=== PATIENT | male | born 1960 | race Caucasian/White ===

== ENCOUNTER 2018-07-04 07:24 | Inpatient (IN) ==
--- NOTE | 2018-06-12 07:48 | History & Physical Report ---
Date of Service June 12, 2018 Date of Surgery: 07-04-18 Assessment & Plan (1) Bilateral primary osteoarthritis of knee: Risks and benefits of procedure discussed in detail today, patient would like to proceed with bilateral total knee replacement at [facility] as scheduled. will obtain PATs at [facility]. Will place on Xarelto x 1 month post op, f/u 2 weeks post op for routine post-operative care and x-ray, sooner if having any problems. will make arrangements for HHPT at the time of discharge. At this point in time, has failed conservative measures and would like to proceed with surgical intervention. History of Present Illness Chief Complaint: bilateral knee pain Primary Care Provider: NO PCP Mr Burton is a 57 year old male who complains of bilateral knee pain, presents for pre-op evaluation prior to bilateral total knee replacements on 07-04-18 at [facility]. He presents with pain on the right and left side equally. He states that the symptoms have been chronic non-traumatic and occur intermittently. Currently the patient states that the symptoms are moderate-severe. The pain is described as aching and sometime sharp. The patient is experiencing pain diffusely in both knees, He rates his current pain as 5/10 and worst is 7/10. The symptoms are aggravated by ascending stairs, daily activities and walking/standing for long periods of time. He states that the symptoms are relieved by no specific activity. In addition to knee pain equally on both sides the patient is also experiencing difficulty bending, pain after activity and stiffness. Patient had cortisone injections in both knees by PCP on 04/11/18 with no relief. He has tried PO NSAIDs as well as Tylenol with little relief. Allergies Allergy/AdvReac Type Severity Reaction Status Date / Time No Known Allergies Allergy Verified 06/02/18 07:55 Home Medications Home Medications Medication Instructions Recorded Confirmed Type Betaprostate 1 tab PO QAM 06/02/18 History Hemp Oil 1 dose PO HS PRN 06/02/18 History atorvastatin 40 mg PO HS 06/02/18 06/02/18 History qrailpw-uomrnbyjlz-QMV-caff 1 cap PO Q6H PRN 06/02/18 06/02/18 History [Butalbital Compound W/Codeine] dexlansoprazole [Dexilant] 60 mg PO QAM 06/02/18 06/02/18 History diphenhydramine HCl [Benadryl] 25 mg PO Q6H PRN 06/02/18 06/02/18 History metoprolol tartrate 25 mg PO BID 06/02/18 06/02/18 History multivitamin 1 tab PO QAM 06/02/18 06/02/18 History nitroglycerin 1 tab SUBLINGUAL DIRECTED 06/02/18 06/02/18 History dajidyfljfdnw-lsgukdpyjwcny-FC 1 tab PO Q6H PRN 06/02/18 06/02/18 History [Tylenol Sinus Severe] ranolazine [Ranexa] 1,000 mg PO BID 06/02/18 06/02/18 History tamsulosin 0.4 mg PO BID 06/02/18 06/02/18 History Past Med/Surg History Medical History BPH (benign prostatic hyperplasia) DJD (degenerative joint disease) of knee History of bleeding ulcers Hx of myocardial infarction Migraine Osteoarthritis Personal history of kidney stones Surgical History History of cardiac cath 1 vessel blocked - no stents; History of colonoscopy History of endoscopic sinus surgery History of esophagogastroduodenoscopy (EGD) History of prostate surgery Describes as "roto rooter" Family History Mother FHx: cancer Social History Preferred Language: Austrian Communication Ability: Effective Beliefs That Will Affect Care: Yazidism Yazidism 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 Current Living Situation: Spouse Other Information That Helps Us Care for You: No Feels Safe at Home: Yes Safety Concerns: Feels Safe At This Time Smoking Status: Never smoker Do You Dip or Chew Tobacco: No Hx Alcohol Use: No Hx Substance Use: Yes substance use type: marijuana Substance Use Type Other:: Hemp Oil Last Used Substance Other:: Uses at night Review of Systems Review of Systems: All systems reviewed & are unremarkable except as noted in HPI & below Constitutional: no fever, no chills and no sweats Respiratory: no cough and no dyspnea Cardiovascular: no chest pain, no dyspnea and no orthopnea Gastrointestinal: no abdominal pain, no nausea and no vomiting Musculoskeletal: as per Subjective / HPI Integumentary: no rash and no lesions Physical Exam Physical Exam: Ht: 6ft 2 inches Wt: 79.8kg BP: 122/78 Pulse: 66 Constitutional: WD/WN, vitals as above + well hydrated; no acute distress Respiratory: normal respiratory effort, lungs clear to auscultation no respiratory distress, no labored breathing and does not use accessory muscles Cardiovascular: RRR, no murmur, no edema Gastrointestinal (Abdomen): normal bowel sounds, soft, nontender, no hepatosplenomegaly Musculoskeletal: Bilateral knee Physical exam- Overall he has varus alignment to both knees, there is no atrophy, erythema or ecchymosis noted, he does have +1 suprapatellar effusion in both knees, he has tenderness to both medial and lateral joint lines of both knees, negative patellar apprehension, he does have crepitation noted to both knees with active motion. bilateral knees stable to valgus and varus stress, magda negative, posterior drawer negative. Range of motion right knee 0/3/110, left knee 0/3/115. bilateral lower extremities are neurovascularly intact, calf soft and non tender, DP pulse +2 bilaterally. Skin: no rashes, warm and dry Results & Data Laboratory Results Bilateral Knee X-ray on 05-01-18 showing advanced degenerative changes bilateral knees, greatest medial compartments and patellofemoral joints with overall varus alignment to both knees, findings consistent with joint space narrowing, osteophyte formation and subchondral sclerosis. no acute bony pathology noted. there are no loose bodies noted.
--- NOTE | 2018-06-12 12:39 | PAT Medication Instructions ---
Medication Instructions Date of Service June 12, 2018 Home Medications Betaprostate 1 tab PO QAM Hemp Oil 1 dose PO HS as needed atorvastatin 40 mg PO HS trvgwbh-vmybovtnqg-BXC-caff [Butalbital Compound W/Codeine] 1 cap PO Q6H as needed dexlansoprazole [Dexilant] 60 mg PO QAM diphenhydramine HCl [Benadryl] 25 mg PO Q6H as needed metoprolol tartrate 25 mg PO BID multivitamin 1 tab PO QAM nitroglycerin 1 tab SUBLINGUAL DIRECTED sgqrotgdlvdjb-ypnxjdcmepfgt-UM [Tylenol Sinus Severe] 1 tab PO Q6H as needed ranolazine [Ranexa] 1,000 mg PO BID tamsulosin 0.4 mg PO BID Continue as directed nitroglycerin 1 tab SUBLINGUAL DIRECTED DO NOT take the morning of surgery Betaprostate 1 tab PO QAM multivitamin 1 tab PO QAM xgkiymenqnolf-jmgrjwkflejak-BV [Tylenol Sinus Severe] 1 tab PO Q6H as needed Take morning of surgery With a small sip of water, OTHERWISE NOTHING TO EAT OR DRINK AFTER MIDNIGHT: qsirbrn-dzimngkbex-DRH-caff [Butalbital Compound W/Codeine] 1 cap PO Q6H as needed dexlansoprazole [Dexilant] 60 mg PO QAM diphenhydramine HCl [Benadryl] 25 mg PO Q6H as needed metoprolol tartrate 25 mg PO BID ranolazine [Ranexa] 1,000 mg PO BID tamsulosin 0.4 mg PO BID Take evening before surgery Hemp Oil 1 dose PO HS as needed atorvastatin 40 mg PO HS dfcuhek-gbkbabqoam-QZC-caff [Butalbital Compound W/Codeine] 1 cap PO Q6H as needed diphenhydramine HCl [Benadryl] 25 mg PO Q6H as needed metoprolol tartrate 25 mg PO BID nbergenkzdbfo-uvbahaaahfprm-WO [Tylenol Sinus Severe] 1 tab PO Q6H as needed ranolazine [Ranexa] 1,000 mg PO BID tamsulosin 0.4 mg PO BID Other Notes If you have any questions please call us at [phone] or [phone] or [phone] or [phone]
--- NOTE | 2018-06-12 13:34 | Anesthesiology Consultation ---
Date of Service June 12, 2018 Assessment & Plan (1) Encounter for pre-operative examination: Chart Review Chart Review: Acceptable Risk for Surgery and Patient seen in Pre Admission Testing Consults Requested cardiac (Dr. Bang ) Patient was seen by Cardiology on 03/13/18 and an addendum was added on 05/09/18 that states "Stable from a cardiac standpoint. Patient may proceed with an intermediate surgery accepting a 1% risk for perioperative mortality and morbidity without any additional cardiac testing." Teaching & Discussion Pre-Anesthesia Teaching/Discussion Notes: Instructed NPO after midnight before surgery, except medications with 15 cc of water. Medication instructions provided according to the PAT guidelines. History Surgery Operation Date: 07/04/18 09:55 Proposed Procedures p Bilateral Total Knee Arthroplasty - Huy Walton DO Height/Weight Height: 6 ft 2.75 in Weight: 82.2 kg Allergies Allergy/AdvReac Type Severity Reaction Status Date / Time No Known Allergies Allergy Verified 06/02/18 07:55 Medications Home Medications Medication Instructions Recorded Confirmed Last Taken Betaprostate 1 tab PO QAM 06/02/18 Unknown Hemp Oil 1 dose PO HS PRN 06/02/18 Unknown atorvastatin 40 mg PO HS 06/02/18 06/02/18 Unknown peqrela-zpdtmoviow-FNW-caff 1 cap PO Q6H PRN 06/02/18 06/02/18 Unknown [Butalbital Compound W/Codeine] dexlansoprazole [Dexilant] 60 mg PO QAM 06/02/18 06/02/18 Unknown diphenhydramine HCl [Benadryl] 25 mg PO Q6H PRN 06/02/18 06/02/18 Unknown metoprolol tartrate 25 mg PO BID 06/02/18 06/02/18 Unknown multivitamin 1 tab PO QAM 06/02/18 06/02/18 Unknown nitroglycerin 1 tab SUBLINGUAL DIRECTED 06/02/18 06/02/18 Unknown yzwsbxuaqosfy-vafcwmqwxmdis-MT 1 tab PO Q6H PRN 06/02/18 06/02/18 Unknown [Tylenol Sinus Severe] ranolazine [Ranexa] 1,000 mg PO BID 06/02/18 06/02/18 Unknown tamsulosin 0.4 mg PO BID 06/02/18 06/02/18 Unknown Past Medical History Medical History BPH (benign prostatic hyperplasia) DJD (degenerative joint disease) of knee History of bleeding ulcers Hx of myocardial infarction 09/18/17 Migraine Osteoarthritis Personal history of kidney stones Past Family History Family History Mother FHx: cancer Past Surgical History Surgical History History of appendectomy History of cardiac cath 1 vessel blocked - no stents; History of colonoscopy History of endoscopic sinus surgery History of esophagogastroduodenoscopy (EGD) History of prostate surgery Past Anesthesia History No Hx of Anesthesia Complications and Pseudocholinesterase Deficiency (Father has hx of ) History of PONV Yes (Once after the sinus surgery) Motion Sickness Screening History of Motion Sickness: Yes (Spinning rides, doesn't get car sick) Social History Smoking Status: Never smoker Do You Dip or Chew Tobacco: No Hx Alcohol Use: No Hx Substance Use: No Substance Use Type Other:: Hemp Oil Last Used Substance Other:: Uses at night Exercise / Class Metabolic Activity II 4-5 Yardwork/Stairs/Walk up hill (Walks 5+ miles per day. Able to easily climb FOS. Denies CP or SOB. ) Review of Systems Patient denies chest pain, shortness of breath, dyspnea on exertion, cough, wheezing, palpitations. + Joint Pain (Knees) +Acid reflux (Mild - mostly diet and medication controlled) Physical Exam Vital Signs BP: 112/74 P: 69 R: 16 T: 97.9 SPO2: 98% on RA ENMT Thyromental Distance: < 3.5 Finger Breadths (3) Mallampati Class: I Neck normal visual inspection and trachea midline; neck extension not limited Respiratory normal respiratory effort Auscultation: lungs clear to auscultation bilaterally Cardiovascular Rate/Rhythm: regular rate and regular rhythm Heart Sounds: no murmur Vessels: no carotid bruit Neurologic moves all extremities Psychiatric Orientation: alert and oriented x 3 Testing Electrocardiogram Date: 06/12/18 Findings: + NSR @ (73) Left axis deviation. Chest X-Ray Date: 09/18/17 Findings: + NAD Cardiac Catheterization Date: 09/20/17 IMPRESSION AND PLAN: Patient has: 1. Minimal angiographic CAD with the exception of a 50% stenosis in the subdivision of a diagonal branch of the LAD. 2. Preserved left ventricular EF (65%) 3. No significant disease of the RCA. Complications: None Recommendations: At this point in time, perhaps his pain may have come from the diagonal branch. Nonetheless it is med Rx only. He does have some ectasia throughout therefore make sure that he is on appropriate dose statin and aspirin. Plan will be to discharge home later today with close follow up with Dr. Ovalle. Laboratory Results 06/12/18 14:07 06/12/18 14:07 Blood Type O Positive 06/12/18 14:07 Antibody Screen NEGATIVE 06/12/18 14:07 PT 11.9 Seconds (9.0-12.0) 06/12/18 14:07 INR 1.2 (0.9-1.1) H 06/12/18 14:07 APTT 25.6 Seconds (21.0-31.0) 06/12/18 14:07 Hemoglobin A1c 6.0 % (4.5-5.6) H 06/12/18 14:07 Urine Color Dark Yellow 06/12/18 14:07 Urine Appearance Cloudy (Clear) H 06/12/18 14:07 Urine pH 5.0 (4.5-7.5) 06/12/18 14:07 Ur Specific Pelican 1.035 (1.000-1.030) H 06/12/18 14:07 Urine Protein Negative (Negative) 06/12/18 14:07 Urine Glucose (UA) Negative (Negative) 06/12/18 14:07 Urine Ketones Trace (Negative) H 06/12/18 14:07 Urine Nitrite Negative (Negative) 06/12/18 14:07 Ur Leukocyte Esterase Trace (Negative) H 06/12/18 14:07 Urine WBC (Auto) 5-10 /hpf (0-5) H 06/12/18 14:07 Urine RBC (Auto) 5-10 /hpf (0-4) H 06/12/18 14:07 U Hyaline Cast (Auto) 1-5 /lpf (0-5) 06/12/18 14:07 U Epithel Cells (Auto) 10-20 /lpf (0-5) H 06/12/18 14:07 Urine Bacteria (Auto) Negative (Negative) 06/12/18 14:07 06/12/18 14:07 Urine Culture - Final Urine,Clean Catch Three types of organisms present, all low counts probable skin naheed. No further identifications or sensitivities to follow.
[2018-06-12 15:28] LABS: Basophils # (auto) 0.02 K/uL (0-0.2); Basophils % (auto) 0.4 %; Eosinophils # (auto) 0.08 K/uL (0-0.5); Eosinophils % (auto) 1.6 %; Immature Granulocytes # (auto) 0.02 K/uL (0.00-0.02); Immature Granulocytes % (auto) 0.4 %; Lymphocytes # (auto) 0.78 K/uL (1.2-3.4); Lymphocytes % (auto) 15.9 %; Mean Corpuscular Hgb Conc 34.1 g/dL (32-36); Mean Corpuscular Volume 99.5 fL (80-100); Monocytes # (auto) 0.52 K/uL (0.11-0.59); Monocytes % (auto) 10.6 %; Neutrophils # (auto) 3.49 K/uL (1.4-6.5); Neutrophils % (auto) 71.1 %; Platelet Count 182 K/uL (130-400); RDW Coefficient of Variation 13.4 % (11.5-14.5); RDW Standard Deviation 48.2 fL (36.4-46.3); Red Blood Count 4.12 M/uL (4.7-6.1); White Blood Count 4.91 K/uL (4.8-10.8)
[2018-06-12 15:38] LABS: Albumin Level 3.5 gm/dl (3.4-5.0); BUN Creatinine Ratio 13.7 (10-20); Calcium 8.7 mg/dl (8.5-10.1); Creatinine Clr Calc Pharmacy 94.6 ml/min; Est GFR (African American) 96.9; Est GFR (Non-African American) 83.6; Potassium 3.7 mmol/L (3.5-5.1)
[2018-06-12 15:39] LABS: INR 1.2 (0.9-1.1); Partial Thromboplastin Ratio 0.9; Partial Thromboplastin Time 25.6 Seconds (21.0-31.0); Prothrombin Time 11.9 Seconds (9.0-12.0)
[2018-06-12 15:51] LABS: Appearance Urine Cloudy (Clear); Bacteria Urine Automated Negative (Negative); Bilirubin Urine Negative (Negative); Blood Urine Negative (Negative); Color Urine Dark Yellow; Glucose Urine UA Negative (Negative); Ketones Urine Trace (Negative); Leukocyte Esterase Urine Trace (Negative); Nitrite Urine Negative (Negative); Protein Urine Negative (Negative); Specific Gravity Urine 1.035 (1.000-1.030); Urobilinogen Urine Negative (Negative)
[2018-06-13 06:26] LABS: Estimated Average Glucose 126 mg/dl
[~2018-07-04 07:24] MED LIST: ACETAMINOPHEN 500 MG TAB PO SCH; BUPIVACAINE/EPINEPHRINE 0.5% MPF 1:200,000 30 ML VIAL ONE; CEFAZOLIN 1000MG 1,000 MG/7.5 ML SYR IV SCH; CeleBREX 200 MG CAP PO SCH; DEXAMETHASONE SOD INJ 4 MG/ML VIAL ONE; FAMOTIDINE 20 MG TAB PO SCH; GABAPENTIN 300 MG x 2 PO SCH; LR 500ML BOLUS, THEN 15ML/HR IV SCH; METOCLOPRAMIDE HCL 10 MG TABLET PO SCH; ROPIVACAINE 0.5% HCL/PF 150 MG, BUPIVACAINE 0.5% MPF 30 ML, EPINEPHrine 30MG/30ML (OR U... INFIL SCH; TRANEXAMIC ACID 1,000 MG **IV Intra-op IV SCH; TRANEXAMIC ACID 1,000 MG **IV Pre-op IV SCH; dexAMETHasone 4 MG TAB PO SCH
[2018-07-04] MEDS ORDERED: PROPOFOL IV EMULSION 10 MG/ML 20 ML VIAL IV ONE ×2 (08:10→11:58)
[2018-07-04] MEDS ORDERED: fentaNYL citrate 100 MCG/2 ML VIAL ONE (08:10)
[2018-07-04] MEDS ORDERED: LIDOCAINE HCL 2% 2 ML VIAL/AMP(20MG/ML) INFIL ONE (08:10)
[2018-07-04] MEDS ORDERED: MIDAZOLAM HCL 1 MG/ML 2ML VIAL ONE (08:10)
--- NOTE | 2018-07-04 08:24 | History & Physical Bridge Note ---
Date of Service July 04, 2018 History & Physical Bridge Note I have examined the patient, reviewed the History & Physical and in the interval since the performance of the History & Physical I have noted the following changes of clinical significance: no changes noted
[2018-07-04] MEDS ORDERED: CEFAZOLIN 2,000 MG/15 ML IV PUSH IV ONE (08:33)
[2018-07-04] MEDS ORDERED: ATROPINE SULFATE 0.1 MG/ML 10ML SYR IV PRN (09:03)
[2018-07-04] MEDS ORDERED: ePHEDrine sulfate 50 MG/ML AMP IV PRN (09:03)
[2018-07-04] MEDS ORDERED: fentaNYL citrate 100 MCG/2 ML VIAL IV PRN (09:03)
[2018-07-04] MEDS ORDERED: ONDANSETRON INJ 2 MG/ML 2 ML VIAL IV PRN ×2 (09:03→13:34)
[2018-07-04] MEDS ORDERED: BACITRACIN INJ 50,000 UNIT VIAL ONE (09:05)
[2018-07-04] MEDS ORDERED: ORTHO JOINT ANESTHETIC ONE (09:05)
[2018-07-04] MEDS ORDERED: POVIDONE-IODINE OP SOLN 30 ML BTL ONE (09:05)
--- NOTE | 2018-07-04 11:27 | Operative Report ---
Post Operative Report Pre & Post Diagnosis Operation Date: 07/04/18 09:55 Pre-Op Diagnosis: Bilateral primary osteoarthritis of knee Post-Op Diagnosis: Bilateral primary osteoarthritis of knee Procedure Operation Date: 07/04/18 09:55 Actual Procedures p Bilateral Total Knee Arthroplasty(Bilateral) utilizing [employer] patient matched total knee arthroplasty right size 8 femur 6 tibia 12 polyethylene 32 oval patella left size 7 femur 6 tibia 13 poly-32 oval patella- Huy Walton DO Surgeon Huy Walton DO [employer] Technical Architect Patricio RICE Estimated Blood Loss 10 Findings Consistent with Post-Op Diagnosis Patient presents with bilateral severe end-stage tricompartmental degenerative joint disease with varus alignment bilaterally patient did have evidence of subchondral sclerosis marginal osteophytes bone to bone medial compartment bone to bone patellofemoral compartment moderate to large effusions with subchondral sclerosis and [id number]-[id number] noted patient is failed all attempts at conservative management Specimens Bone and cartilage Drains Medium bore Hemovac Complications none Disposition Accompanied Patient To Recovery: No Disposition: Recovery Room Indications Patient presents with severe end-stage tricompartmental degenerative joint disease bilateral knees no response to conservative management including physical therapy and inflammatory relative rest activity modification steroid injection Visco supplementation patient presents for bilateral total knee arthroplasty after being medically cleared discussing risk complications. Description of Procedure After proper prepping and draping of the bilateral lower extremities, an anterior midline incision was made over the region of the extensor extensor mechanism of the left knee. After meticulous hemostasis was obtained and maintained in subcutaneous tissues a medial parapatellar incision was made The patella was subluxed lateralward the medial lateral gutter were cleaned from any hypertrophic synovitis and scar tissue of the distal femoral block was placed and the distal femoral osteotomy cut was made subsequently the chamfers anterior and posterior osteotomy cuts were made utilizing the 4-in-1 block the tibia was subsequently subluxed anteriorward medial and ateral meniscal remnants were excised in their entirety remnants of the anterior and posterior cruciate ligaments were excised in their entirety excellent exposure of the proximal tibia was obtained the tibial osteotomy guide was placed on the proximal tibial osteotomy cut was made once again the knee was irrigated with copious amounts of sterile saline solution the patella was subsequently everted lateralward thickened scar tissue around the patella was removed the patella was subs equently cut utilizing a freehand technique and was drilled prepared for final preparation and placement of patella socially flexion-extension gaps were checked and the equal and symmetric trials were placed to the appropriate femoral and tibial trials with poly-spacer being placed for equal flexion and extension gaps and full range of motion including extension to 0 and flexion to 140 the trial components after having been taken to recovery range of motion was subsequently removed meticulous hemostasis was obtained and maintained subsequently a knee block injection of joint cocktail including ropivacaine 0.5% 150 mg. Bupivacaine 0.5% epinephrine 1-200,030 mL's toradol 30 mg dexamethasone 4 mg ketamine 10 mg clonidine 100 micrograms normal saline solution 30 mg was infiltrated into the soft tissues of the posterior knee medial lateral gutters and periosteal synovium special attention was paid to protect neurovascular structures at all times subsequently trial components having been removed the knee was irrigated with sterile saline solution. debris was removed the proximal tibia was subsequently prepared and was made ready for the placement of the tibial component tibial component was also cemented and tamped into position the femoral component was subsequently placed and cemented in the position the patellar component was subsequently cemented in position because hemostasis once again obtained and maintained wound having been thoroughly irrigated with debridement and debridement lavage was performed as well as a medial parapatellar incision closed with #1 Vicryl in interrupted fashion subcutaneous was closed with #2 Vicryl skin was closed with skin clips Next, an anterior midline incision was made over the region of the extensor extensor mechanism of the right knee. After meticulous hemostasis was obtained and maintained in subcutaneous tissues a medial parapatellar incision was made The patella was subluxed lateralward the medial lateral gutter were cleaned from any hypertrophic synovitis and scar tissue of the distal femoral block was placed and the distal femoral osteotomy cut was made subsequently the chamfers anterior and posterior osteotomy cuts were made utilizing the 4-in-1 block the tibia was subsequently subluxed anteriorward medial and ateral meniscal remnants were excised in their entirety remnants of the anterior and posterior cruciate l igaments were excised in their entirety excellent exposure of the proximal tibia was obtained the tibial osteotomy guide was placed on the proximal tibial osteotomy cut was made once again the knee was irrigated with copious amounts of sterile saline solution the patella was subsequently everted lateralward thickened scar tissue around the patella was removed the patella was subsequently cut utilizing a freehand technique and was drilled prepared for final preparation and placement of patella socially flexion-extension gaps were checked and the equal and symmetric trials were placed to the appropriate femoral and tibial trials with poly-spacer being placed for equal flexion and extension gaps and full range of motion including extension to 0 and flexion to 140 the trial components after having been taken to recovery range of motion was subsequently removed meticulous hemostasis was obtained and maintained subsequently a knee block injection of joint cocktail including ropivacaine 0.5% 150 mg. Bupivacaine 0.5% epinephrine 1-200,030 mL's toradol 30 mg dexamethasone 4 mg ketamine 10 mg clonidine 100 micrograms normal saline solution 30 mg was infiltrated into the soft tissues of the posterior knee medial lateral gutters and periosteal synovium special attention was paid to protect neurovascular structures at all times subsequently trial components having been removed the knee was irrigated with sterile saline solution. debris was removed the proximal tibia was subsequently prepared and was made ready for the placement of the tibial component tibial component was also cemented and tamped into position the femoral component was subsequently placed and cemented in the position the patellar component was subsequently cemented in position because hemostasis once again obtained and maintained wound having been thoroughly irrigated with debridement and debridement lavage was performed as well as a medial parapatellar incision closed with #1 Vicryl in interrupted fashion subcutaneous was closed with #2 Vicryl skin was closed with skin clips.. PA-C was necessary for prepping and drapping as well as wound closure of deep fascia Sub cutaneous tissue and skin and was necessary for the case. A sterile compressive dressings were placed, patient was taken to recovery in stable condition of report dictated by Anton I attest to the content of the Intraoperative Record and any orders documented therein. Any exceptions are noted below. I attest to the content of the Intraoperative Record and any orders documented therein. Any exceptions are noted below.
--- NOTE | 2018-07-04 13:01 | XRay Report ---
XR knee RT 2V routine CLINICAL HISTORY: Surgical Post Op COMPARISON: None. DISCUSSION: There are postsurgical changes of a total knee arthroplasty and patellar resurfacing. The femoral and tibial components appear well seated. Overlying drains. There is aortic the soft tissues consistent with recent surgery. IMPRESSION: Postsurgical changes of a total right knee arthroplasty. Electronically signed by: Jim Peters M.D. 07/04/2018 12:59 PM
--- NOTE | 2018-07-04 13:06 | XRay Report ---
LEFT KNEE 2 VIEWS History: Left total knee arthroplasty. Degenerative arthritis. Postop. FINDINGS: The patient is status post a left total knee arthroplasty. The hardware is intact. No fract ure or dislocation. Surgical drains are in place. IMPRESSION: Left total knee arthroplasty. No evidence for hardware complication. Electronically signed by: Win Worthington M.D. 07/04/2018 1:05 PM
--- NOTE | 2018-07-04 13:08 | Anesthesiology Progress Note ---
Date of Service July 04, 2018 Anesthesia Post Procedure Vital Signs Vital Signs: Temp Pulse Pulse Resp BP Pulse Ox 07/04/18 13:00 36.7 C 72 14 122/66 97 07/04/18 12:50 71 15 115/73 97 07/04/18 12:40 72 14 125/67 98 07/04/18 12:30 81 16 105/72 96 07/04/18 12:24 70 16 109/72 97 07/04/18 12:14 36.3 C L 91 H 91 H 14 115/76 97 07/04/18 08:00 36.8 C 65 18 111/74 93 Pain Intensity Bilateral Knee: Pain Intensity: 2 Transfer of Care Handoff Completed per policy Notes Mental Status: alert / awake / arousable Patient Amnestic to Procedure: Yes Nausea / Vomiting: adequately controlled Pain: adequately controlled Airway Patency, RR, SpO2: stable & adequate BP & HR: stable & adequate Hydration State: stable & adequate Neuraxial Anesthesia: was administered and sensory block is resolving Anesthetic Complications: no major complications apparent and Pt Satisfied with anesthetic care
[2018-07-04] MEDS ORDERED: NALOXONE HCL 0.4 MG/1 ML VIAL/CARP IV PRN (13:34)
[2018-07-04] MEDS ORDERED: METOCLOPRAMIDE HCL INJ 5 MG/ML 2 ML VIAL IV PRN (13:34)
[2018-07-04] MEDS ORDERED: NITROGLYCERIN SL 0.4 MG/TAB TAB SL PRN (13:34)
[2018-07-04] MEDS ORDERED: BISACODYL 10 MG SUPP PR PRN (13:34)
[2018-07-04] MEDS ORDERED: ALUMINUM/MAGNESIUM SUSP 30 ML UDC PO PRN (13:34)
[2018-07-04] MEDS: SODIUM CHLORIDE 0.9% 1000ML 1,000 ML IV SCH (15:44)
[2018-07-04] MEDS: CEFAZOLIN 2000MG 2,000 MG/15 ML SYR IV SCH (18:24)
[2018-07-04] MEDS: KETOROLAC TROMETHAMINE 15 MG/ML VIAL IV SCH ×2 (18:24→23:53)
[2018-07-04] MEDS: METOPROLOL TARTRATE 25 MG TAB PO SCH (21:20)
[2018-07-04] MEDS: ACETAMINOPHEN 500 MG TAB PO SCH (21:21)
[2018-07-04] MEDS: TAMSULOSIN HCL 0.4 MG CAP PO SCH (21:22)
[2018-07-04] MEDS: ATORVASTATIN 40 MG TAB PO SCH (21:22)
[2018-07-04] MEDS: SENNA 8.6 MG TAB PO SCH (21:22)
[2018-07-04] MEDS: RANOLAZINE 500 MG ER TAB PO SCH (21:22)
[2018-07-04] MEDS: DOCUSATE SODIUM 100 MG CAP PO SCH (21:22)
[2018-07-04] MEDS: OXYCODONE HCL IR 5 MG TAB (IMMEDIATE RELEASE) PO PRN ×2 (21:23→22:19)
[2018-07-05] MEDS: CEFAZOLIN 2000MG 2,000 MG/15 ML SYR IV SCH (01:48)
[2018-07-05] MEDS: OXYCODONE HCL IR 5 MG TAB (IMMEDIATE RELEASE) PO PRN ×5 (02:33→21:19)
[2018-07-05] MEDS: SODIUM CHLORIDE 0.9% 1000ML 1,000 ML IV SCH ×2 (04:56→22:09)
[2018-07-05] MEDS: ACETAMINOPHEN 500 MG TAB PO SCH ×3 (06:28→21:21)
[2018-07-05] MEDS: KETOROLAC TROMETHAMINE 15 MG/ML VIAL IV SCH ×2 (06:29→11:53)
[2018-07-05 07:17] LABS: Hemoglobin 11.6 g/dL (14.0-18.0); Mean Corpuscular Hgb Conc 35.2 g/dL (32-36); Mean Corpuscular Volume 96.5 fL (80-100); Mean Platelet Volume 11.2 fL (7.4-10.4); Platelet Count 151 K/uL (130-400); RDW Coefficient of Variation 13.1 % (11.5-14.5); RDW Standard Deviation 45.9 fL (36.4-46.3); Red Blood Count 3.42 M/uL (4.7-6.1); White Blood Count 11.96 K/uL (4.8-10.8)
[2018-07-05 07:53] LABS: BUN Creatinine Ratio 18.2 (10-20); Creatinine Clr Calc Pharmacy 90.4 ml/min; Est GFR (African American) 93.5; Est GFR (Non-African American) 80.6
--- NOTE | 2018-07-05 08:12 | Anesthesiology Progress Note ---
Date of Service July 05, 2018 Anesthesia Post Procedure Vital Signs Vital Signs: Temp Pulse Pulse Resp BP Pulse Ox 07/05/18 07:05 36.7 C 88 18 114/67 97 07/05/18 02:13 37.3 C 79 16 104/67 96 07/04/18 23:14 36.6 C 94 H 16 103/64 95 07/04/18 21:20 93/52 L 07/04/18 19:25 36.7 C 96 H 16 111/73 95 07/04/18 18:22 96/62 L 07/04/18 17:10 92/56 L 07/04/18 16:11 36.5 C 91 H 16 115/69 97 07/04/18 15:17 36.5 C 71 17 123/78 96 07/04/18 14:22 78 18 119/67 96 07/04/18 13:51 76 18 119/73 94 07/04/18 13:15 36.5 C 72 16 114/71 94 07/04/18 13:00 36.7 C 72 14 122/66 97 07/04/18 12:50 71 15 115/73 97 07/04/18 12:40 72 14 125/67 98 07/04/18 12:30 81 16 105/72 96 07/04/18 12:24 70 16 109/72 97 07/04/18 12:14 36.3 C L 91 H 91 H 14 115/76 97 Pain Intensity Bilateral Knee: Pain Intensity: 6 Notes Mental Status: alert / awake / arousable and participated in evaluation Patient Amnestic to Procedure: Yes Nausea / Vomiting: adequately controlled Pain: adequately controlled Airway Patency, RR, SpO2: stable & adequate BP & HR: stable & adequate Hydration State: stable & adequate Neuraxial Anesthesia: was administered and sensory block resolved Anesthetic Complications: no major complications apparent
--- NOTE | 2018-07-05 08:40 | Orthopedic Progress Note ---
Date of Service July 05, 2018 Assessment & Plan (1) Bilateral primary osteoarthritis of knee: Postop day 1 status post bilateral total knee arthroplasty. Orthostatic hypotension when out of bed. Nursing will continue to hold his metoprolol at this time. We will continue slowly hydrating the patient with normal saline solution to run at 80 mL an hour. As noted above, hemoglobin is within acceptable limits. Begin PT and OT protocols weightbearing as tolerated as able. DVT prophylaxis with rivaroxaban, SCDs, LARS hose. Pain management with acetaminophen, oxycodone, hydromorphone. DC planning-patient is hoping to go to [facility] rehab post discharge. Subjective Patient is postop day 1 status post bilateral total knee arthroplasty. Patient is currently lying in bed. When I entered the room, nursing is present with him and stated that he almost passed out. This has apparently happened once before last night. Patient states that he got up slowly this morning to acclimate himself. He walked around the room. He cleaned himself and then went to sit down in the chair at the bedside. At that point in time he began to get lightheaded and stated that he felt like he was going to pass out. He was then put back into bed. BPs ranged 90s over 60s. He denied shortness of breath or chest pain. Pain is controlled currently. Physical Exam Physical Exam: Bilateral dressings are clean, dry, and intact. Calves are soft nontender. Neurovascular is intact. Toes are mobile. Hemovac drainage out of the left is 150 and the right is minimal. Results & Data Vital Signs (Past 12 Hours) Vital Signs Temp Pulse Resp BP Pulse Ox 07/05/18 07:05 36.7 C 88 18 114/67 97 07/05/18 02:13 37.3 C 79 16 104/67 96 07/04/18 23:14 36.6 C 94 H 16 103/64 95 07/04/18 21:20 93/52 L Laboratory Results Laboratory Results WBC 11.96 K/uL (4.8-10.8) H 07/05/18 06:44 RBC 3.42 M/uL (4.7-6.1) L 07/05/18 06:44 Hgb 11.6 g/dL (14.0-18.0) L 07/05/18 06:44 Hct 33.0 % (42-52) L 07/05/18 06:44 MCV 96.5 fL (80-100) 07/05/18 06:44 MCH 33.9 pg (25-34) 07/05/18 06:44 MCHC 35.2 g/dL (32-36) 07/05/18 06:44 RDW Std Deviation 45.9 fL (36.4-46.3) 07/05/18 06:44 RDW Coeff of Grzegorz 13.1 % (11.5-14.5) 07/05/18 06:44 Plt Count 151 K/uL (130-400) 07/05/18 06:44 MPV 11.2 fL (7.4-10.4) H 07/05/18 06:44 Immature Gran % (Auto) 0.4 % 06/12/18 14:07 Neut % (Auto) 71.1 % 06/12/18 14:07 Lymph % (Auto) 15.9 % 06/12/18 14:07 [place] % (Auto) 10.6 % 06/12/18 14:07 Eos % (Auto) 1.6 % 06/12/18 14:07 Baso % (Auto) 0.4 % 06/12/18 14:07 Immature Gran # (Auto) 0.02 K/uL (0.00-0.02) 06/12/18 14:07 Neut # (Auto) 3.49 K/uL (1.4-6.5) 06/12/18 14:07 Lymph # (Auto) 0.78 K/uL (1.2-3.4) L 06/12/18 14:07 [place] # (Auto) 0.52 K/uL (0.11-0.59) 06/12/18 14:07 Eos # (Auto) 0.08 K/uL (0-0.5) 06/12/18 14:07 Baso # (Auto) 0.02 K/uL (0-0.2) 06/12/18 14:07 PT 11.9 Seconds (9.0-12.0) 06/12/18 14:07 INR 1.2 (0.9-1.1) H 06/12/18 14:07 APTT 25.6 Seconds (21.0-31.0) 06/12/18 14:07 PTT Ratio 0.9 06/12/18 14:07 Sodium 137 mmol/L (136-145) 07/05/18 06:44 Potassium 4.0 mmol/L (3.5-5.1) 07/05/18 06:44 Chloride 105 mmol/L (98-107) 07/05/18 06:44 Carbon Dioxide 25 mmol/L (21-32) 07/05/18 06:44 7.0 (3-11) 07/05/18 06:44 BUN 19 mg/dl (7-18) H 07/05/18 06:44 1.02 mg/dl (0.6-1.4) 07/05/18 06:44 Est Cr Clr Drug Dosing 90.4 ml/min 07/05/18 06:44 Est GFR ( Amer) 93.5 07/05/18 06:44 Est GFR (Non-Af Amer) 80.6 07/05/18 06:44 18.2 (10-20) 07/05/18 06:44 Glucose 143 mg/dl (70-99) H 07/05/18 06:44 Estimat Average Glucose 126 mg/dl 06/12/18 14:07 6.0 % (4.5-5.6) H 06/12/18 14:07 Calcium 8.0 mg/dl (8.5-10.1) L 07/05/18 06:44 3.5 gm/dl (3.4-5.0) 06/12/18 14:07 Dark Yellow 06/12/18 14:07 Cloudy (Clear) H 06/12/18 14:07 5.0 (4.5-7.5) 06/12/18 14:07 Ur Specific [place] 1.035 (1.000-1.030) H 06/12/18 14:07 Negative (Negative) 06/12/18 14:07 Negative (Negative) 06/12/18 14:07 Trace (Negative) H 06/12/18 14:07 Negative (Negative) 06/12/18 14:07 Negative (Negative) 06/12/18 14:07 Negative (Negative) 06/12/18 14:07 Negative (Negative) 06/12/18 14:07 Ur Leukocyte Esterase Trace (Negative) H 06/12/18 14:07 5-10 /hpf (0-5) H 06/12/18 14:07 5-10 /hpf (0-4) H 06/12/18 14:07 U Hyaline Cast (Auto) 1-5 /lpf (0-5) 06/12/18 14:07 U Epithel Cells (Auto) 10-20 /lpf (0-5) H 06/12/18 14:07 Negative (Negative) 06/12/18 14:07 Blood Type O Positive 06/12/18 14:07 Antibody Screen NEGATIVE 06/12/18 14:07
[2018-07-05] MEDS ORDERED: SODIUM CHLORIDE 0.9% 1000ML 500 ML IV ONE (08:44)
[2018-07-05] MEDS: DOCUSATE SODIUM 100 MG CAP PO SCH ×2 (09:40→21:23)
[2018-07-05] MEDS: METOPROLOL TARTRATE 25 MG TAB PO SCH ×2 (09:40→21:23)
[2018-07-05] MEDS: RANOLAZINE 500 MG ER TAB PO SCH ×2 (09:41→21:22)
[2018-07-05] MEDS: MULTIVITAMIN TAB PO SCH (09:41)
[2018-07-05] MEDS: PANTOprazole 40 MG TAB PO SCH (09:41)
[2018-07-05] MEDS: TAMSULOSIN HCL 0.4 MG CAP PO SCH ×2 (09:41→21:23)
[2018-07-05] MEDS: RIVAROXABAN 10 MG TABLET PO SCH (09:42)
[2018-07-05] MEDS: HYDROmorphone INJ 1 MG/ML SYRINGE IV PRN (18:41)
[2018-07-05] MEDS: SENNA 8.6 MG TAB PO SCH (21:21)
[2018-07-05] MEDS: ATORVASTATIN 40 MG TAB PO SCH (21:22)
[2018-07-06] MEDS: OXYCODONE HCL IR 5 MG TAB (IMMEDIATE RELEASE) PO PRN ×5 (01:22→21:50)
[2018-07-06] MEDS: ACETAMINOPHEN 500 MG TAB PO SCH ×3 (05:43→21:42)
[2018-07-06] MEDS: KETOROLAC 30 MG/ML VIAL IV PRN ×3 (05:43→19:00)
[2018-07-06] MEDS: METOPROLOL TARTRATE 25 MG TAB PO SCH ×2 (08:48→21:38)
[2018-07-06] MEDS: PANTOprazole 40 MG TAB PO SCH (08:50)
[2018-07-06] MEDS: MULTIVITAMIN TAB PO SCH (08:51)
[2018-07-06] MEDS: DOCUSATE SODIUM 100 MG CAP PO SCH ×2 (08:51→21:41)
[2018-07-06] MEDS: RIVAROXABAN 10 MG TABLET PO SCH (08:51)
[2018-07-06] MEDS: RANOLAZINE 500 MG ER TAB PO SCH ×2 (08:51→21:41)
[2018-07-06] MEDS: SODIUM CHLORIDE 0.9% 1000ML 1,000 ML IV SCH (08:55)
--- NOTE | 2018-07-06 10:01 | Orthopedic Progress Note ---
Date of Service July 06, 2018 Assessment & Plan (1) Bilateral primary osteoarthritis of knee: Postop day 2 status post bilateral total knee arthroplasty. Orthostatic hypotension when out of bed. We will see how he does today. Nursing will continue to hold his metoprolol at this time as needed. We will stop the IV fluids at this time. Plan to recheck hemoglobin today. If patient continues to have hypotension, will consult medicine service. Continue PT and OT protocols weightbearing as tolerated as able. DVT prophylaxis with rivaroxaban, SCDs, LARS hose. Pain management with acetaminophen, oxycodone, hydromorphone. DC planning-patient is hoping to go to [facility] rehab post discharge. Subjective Postop day 2 status post bilateral total knee arthroplasty. Patient is sitting up in his bed this morning. He is awake and alert. He states that he did not get up last night. Currently denies shortness of breath, chest pain, lightheadedness. He states that he feels he overdid his exercises yesterday and was having some more discomfort this morning in his knees. We discussed that he did not need to be doing bedside exercises every hour of the day which may in fact cause increased swelling etc. No other complaints today. Physical Exam Physical Exam: RIVAS dressings are clean, dry, and intact. Calves are soft nontender. Neurovascular intact. Toes are mobile. He does have some swelling of both knees consistent with surgery. Results & Data Vital Signs (Past 12 Hours) Vital Signs Temp Pulse Resp BP Pulse Ox 07/06/18 07:38 37.5 C 89 16 111/67 96 07/05/18 23:10 36.9 C 86 16 100/66 96
[2018-07-06 10:35] LABS: Basophils # (auto) 0.01 K/uL (0-0.2); Basophils % (auto) 0.2 %; Eosinophils # (auto) 0.07 K/uL (0-0.5); Eosinophils % (auto) 1.1 %; Hematocrit (blood only) 27.9 % (42-52); Immature Granulocytes # (auto) 0.03 K/uL (0.00-0.02); Immature Granulocytes % (auto) 0.5 %; Lymphocytes # (auto) 0.75 K/uL (1.2-3.4); Lymphocytes % (auto) 11.3 %; Mean Corpuscular Hgb Conc 35.8 g/dL (32-36); Mean Corpuscular Volume 95.5 fL (80-100); Mean Platelet Volume 10.8 fL (7.4-10.4); Monocytes # (auto) 1.06 K/uL (0.11-0.59); Neutrophils # (auto) 4.69 K/uL (1.4-6.5); Neutrophils % (auto) 70.9 %; Platelet Count 129 K/uL (130-400); RDW Coefficient of Variation 13.4 % (11.5-14.5); Red Blood Count 2.92 M/uL (4.7-6.1); White Blood Count 6.61 K/uL (4.8-10.8)
[2018-07-06] MEDS: TAMSULOSIN HCL 0.4 MG CAP PO SCH ×2 (13:04→21:42)
[2018-07-06] MEDS: MoRPHine SULFATE CR 15 MG TABCR PO SCH (15:51)
[2018-07-06] MEDS: SENNA 8.6 MG TAB PO SCH (21:39)
[2018-07-06] MEDS: ATORVASTATIN 40 MG TAB PO SCH (21:41)
[2018-07-07] MEDS: KETOROLAC 30 MG/ML VIAL IV PRN ×3 (02:15→18:06)
[2018-07-07] MEDS: OXYCODONE HCL IR 5 MG TAB (IMMEDIATE RELEASE) PO PRN ×5 (03:51→23:37)
[2018-07-07] MEDS: ACETAMINOPHEN 500 MG TAB PO SCH ×3 (05:25→21:18)
[2018-07-07] MEDS: MoRPHine SULFATE CR 15 MG TABCR PO SCH ×2 (08:55→20:14)
[2018-07-07] MEDS: RANOLAZINE 500 MG ER TAB PO SCH ×2 (08:56→20:15)
[2018-07-07] MEDS: DOCUSATE SODIUM 100 MG CAP PO SCH ×2 (08:56→20:14)
[2018-07-07] MEDS: PANTOprazole 40 MG TAB PO SCH (08:56)
[2018-07-07] MEDS: MULTIVITAMIN TAB PO SCH (08:56)
[2018-07-07] MEDS: TAMSULOSIN HCL 0.4 MG CAP PO SCH ×2 (08:56→20:15)
[2018-07-07] MEDS: RIVAROXABAN 10 MG TABLET PO SCH (08:57)
--- NOTE | 2018-07-07 09:24 | Orthopedic Progress Note ---
Date of Service July 07, 2018 Assessment & Plan (1) Bilateral primary osteoarthritis of knee: Postop day 3 status post bilateral total knee arthroplasty. Orthostatic hypotension when out of bed. We will see how he does today. Pt was increasing his ambulation distance yesterday but today, PT notes short walk with increased dizziness and drop in BP. Yesterdays Hgb down to 10 from 11 Nursing will continue to hold his metoprolol/Tamsulosin at this time as needed. Will consult Med Service today. Continue PT and OT protocols weightbearing as tolerated as able. DVT prophylaxis with rivaroxaban, SCDs, LARS hose. Pain management with acetaminophen, oxycodone, MS Contin, Hydromorphone DC planning- Pt was hoping for HH services however with continued LH, now asking about rehab/SNF. CM to discuss. Subjective Pt sitting up in bed this AM. Appears comfortable. Pain controlled presently. Denies SOB,CP,LH. Physical Exam Physical Exam: [place] dressings intact with minimal drainage. Calves soft,NT. NV intact. Toes mobile. Results & Data Vital Signs (Past 12 Hours) Vital Signs Temp Pulse Resp BP BP Pulse Ox 07/07/18 07:47 37.3 C 99 H 17 120/73 92 07/06/18 22:47 36.6 C 80 16 113/73 95
[2018-07-07 09:45] LABS: Basophils # (auto) 0.01 K/uL (0-0.2); Basophils % (auto) 0.2 %; Eosinophils # (auto) 0.07 K/uL (0-0.5); Eosinophils % (auto) 1.2 %; Hematocrit (blood only) 29.6 % (42-52); Hemoglobin 10.1 g/dL (14.0-18.0); Immature Granulocytes # (auto) 0.02 K/uL (0.00-0.02); Immature Granulocytes % (auto) 0.4 %; Lymphocytes # (auto) 0.73 K/uL (1.2-3.4); Lymphocytes % (auto) 12.9 %; Mean Corpuscular Hgb Conc 34.1 g/dL (32-36); Mean Platelet Volume 10.3 fL (7.4-10.4); Monocytes # (auto) 0.68 K/uL (0.11-0.59); Neutrophils # (auto) 4.14 K/uL (1.4-6.5); Neutrophils % (auto) 73.3 %; Platelet Count 126 K/uL (130-400); RDW Coefficient of Variation 13.5 % (11.5-14.5); RDW Standard Deviation 47.9 fL (36.4-46.3); Red Blood Count 3.05 M/uL (4.7-6.1); White Blood Count 5.65 K/uL (4.8-10.8)
[2018-07-07] MEDS: METOPROLOL TARTRATE 25 MG TAB PO SCH ×2 (10:10→20:14)
[2018-07-07 10:21] LABS: BUN Creatinine Ratio 13.2 (10-20); Calcium 8.4 mg/dl (8.5-10.1); Creatinine Clr Calc Pharmacy 109.8 ml/min; Est GFR (African American) 111.9; Est GFR (Non-African American) 96.5; Potassium 3.6 mmol/L (3.5-5.1)
[2018-07-07] MEDS ORDERED: SODIUM CHLORIDE 0.9% 1000ML 500 ML IV ONE (10:34)
[2018-07-07] MEDS: NSS + 20MEQ KCL 20 MEQ/1,000 ML BAG IV SCH ×2 (11:45→20:15)
--- NOTE | 2018-07-07 12:08 | Hospitalist Consultation ---
Date of Consultation July 07, 2018 Assessment & Plan (1) Orthostatic hypotension: No structural cardiac issues per report of patient with most recent outpatient echocardiogram No changes on EKG No chest pain, tightness, shortness of breath Patient appears to be dry on exam BUN and creatinine within normal limits Could also be secondary to medications which include Lopressor, Ranexa, Flomax, MS Contin, Dilaudid, Roxanol Will give patient a 500 cc bolus of normal saline followed by maintenance fluid of NSS with 20 mEq of potassium chloride at 125 mL/h Hold Lopressor this morning Hold Ranexa this morning Consider decreasing narcotic consumption as patient denies any knee pain at this time Continue to follow vital signs per protocol (2) Anemia: Presenting hemoglobin was 14 HgB today is 10.1 Hypotension could be a result of volume contraction No indication for transfusion at this time Reported estimated blood loss in surgery was 10 mL No other active bleeding, melena, hematochezia, hematemesis, hemoptysis Follow serial labs (3) S/p total knee replacement, bilateral: POD #[address] Walton No apparent complications from surgery Further management per orthopedics (4) CAD (coronary artery disease): Patient follows with outside just as he [place] 2[place]2 hours [place] Home medications include metoprolol tartrate 25 mg p.o. twice daily and Ranexa 1 g p.o. twice daily Patient is not on an ANG or an ARB Patient also takes an alpha antagonist for BPH (Flomax twice daily) Continue atorvastatin Monitor per protocol (5) DVT prophylaxis: Chemical and mechanical prophylaxis per orthopedics Thank you for including us in the care of this patient. We will follow-up with orthostatics this afternoon after fluid challenges. Please refer to Dr. Carney's addendum for any further recommendations. Supervising Physician Co-Signing Physician Notes [employer]ATOR [employer] Physician Supervision Note: I discussed with Basilio CEJA and agree with findings and plan as documented in the note. Any exceptions or clarifications are listed here: None Patient was seen in the company of his he is having no complaints or problems at this time the previous presyncopal issues have resolved he is currently being rehydrated with IV fluids. The patient is having good pain control Cardiac exam is regular lungs are clear neurological exam is awake alert appropriate he is oriented and nonfocal with exception of some decreased strength of his leg for which he had his knee replaced this is typical postoperative changes Likely hypovolemic state postoperatively which is multifactorial we will hydrate follow for acute blood loss anemia Documented By: Huy Carney History of Present Illness Reason for Consultation: Medical management of orthostatic hypotension Requesting Physician: Jaime Valle PA-C Attending Physician: Huy Walton DO History of Present Illness Attending: Dr. Carney Is a 57-year-old male who is postoperative day #2 for the lateral total knee arthroplasty. Started on the day of surgery the patient reports that he was dizzy when sitting up and had 2 episodes of "fainting" since that time. He reports that he would sit on the edge of the bed and would have to fall over into the bed due to dizziness and weakness. The patient has had no falls outside of the bed. Physical therapy was working with him today and he reported dizziness. They reportedly checked orthostatic pressures and found him to have a greater than 20mmHg drop in systolic pressure and increased heart rate into the 140s. During this. The patient had no chest pain or tightness. He denied any shortness of breath. He had no claudication. His only symptom was dizziness and lightheadedness. They were able to get him back into bed at which time his blood pressure corrected and his heart rate dropped back down to 87. The patient does have a prior history of CAD. Cardiac catheterization in the past revealed a collateral vessel with occlusion as reported by the and the patient. EKG obtained this morning shows left axis deviation which is present on his previous EKG. There were no other significant changes to the EKG. There were no ST elevations. Patient had no symptomology of ACS. Patient reports that he had a recent echocardiogram prior to surgery. 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 The patient lives in [place] and traveled here for surgery. The patient is on Lopressor 25 mg p.o. twice daily, Ranexa 1 g p.o. twice daily, and Flomax 0.4 mg p.o. twice daily. In addition, he has been receiving MS Contin 15 mg p.o. every 12 hours and Dilaudid 1 mg IV every 4 hours as needed for breakthrough pain in addition to Roxicodone IR 5 to 10 mg p.o. every 4 hours as needed pain. The patient is narcotic jaqueline per his report. The patient also reports that his urine appears darker than usual. No evidence of prerenal dehydration with his labs this morning. Allergies Allergy/AdvReac Type Severity Reaction Status Date / Time No Known Allergies Allergy Verified 07/04/18 07:55 Home Medications Home Medications Medication Instructions Recorded Confirmed Type Betaprostate 1 tab PO QAM 06/02/18 History Hemp Oil 1 dose PO HS PRN 06/02/18 History atorvastatin 40 mg PO HS 06/02/18 07/04/18 History updkmyo-cyitsgvccv-XJY-caff 1 cap PO Q6H PRN 06/02/18 07/04/18 History [Butalbital Compound W/Codeine] dexlansoprazole [Dexilant] 60 mg PO QAM 06/02/18 06/02/18 History diphenhydramine HCl [Benadryl] 25 mg PO Q6H PRN 06/02/18 06/02/18 History metoprolol tartrate 25 mg PO BID 06/02/18 06/02/18 History multivitamin 1 tab PO QAM 06/02/18 07/04/18 History nitroglycerin 1 tab SUBLINGUAL DIRECTED 06/02/18 07/04/18 History xorrpyxtvhcsc-fjanalpkrtusp-OS 1 tab PO Q6H PRN 06/02/18 07/04/18 History [Tylenol Sinus Severe] ranolazine [Ranexa] 1,000 mg PO BID 06/02/18 06/02/18 History tamsulosin 0.4 mg PO BID 06/02/18 06/02/18 History Patient History Medical History BPH (benign prostatic hyperplasia) DJD (degenerative joint disease) of knee History of bleeding ulcers Hx of myocardial infarction 09/18/17 Migraine Osteoarthritis Personal history of kidney stones Surgical History History of cardiac cath 1 vessel blocked - no stents; History of colonoscopy History of endoscopic sinus surgery History of esophagogastroduodenoscopy (EGD) History of prostate surgery History of appendectomy Family History Mother FHx: cancer Social History Preferred Language: British Communication Ability: Effective Beliefs That Will Affect Care: Church 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 Pleasant EYES: No icterus, gaze conjugate. Pupils are equal and reactive NOSE: No evidence of epistaxis MOUTH: No lesions or candidiasis. Mucosa is moist NECK: Supple LUNGS: CTA B/L, no wheezes, rales or rhonchi HEART: Regular, rate controlled. No murmurs gallops or rubs appreciated. No appreciation of ectopy ABDOMEN: Soft, NT, ND, BS Present but quiet EXTREMITIES: No LE edema, pedal pulses intact. NEURO: A&OX3. Results & Data Vital Signs (Past 12 Hours) Vital Signs Temp Pulse Resp BP Pulse Ox 07/07/18 07:47 37.3 C 99 H 17 120/73 92 Laboratory Results 07/07/18 09:38 07/07/18 09:38 Diagnostic Findings LEFT KNEE 2 VIEWS History: Left total knee arthroplasty. Degenerative arthritis. Postop. FINDINGS: The patient is status post a left total knee arthroplasty. The hardware is intact. No fracture or dislocation. Surgical drains are in place. IMPRESSION: Left total knee arthroplasty. No evidence for hardware complication. Electronically signed by: Win Worthington M.D. 07/04/2018 1:05 PM XR knee RT 2V routine CLINICAL HISTORY: Surgical Post Op COMPARISON: None. DISCUSSION: There are postsurgical changes of a total knee arthroplasty and patellar resurfacing. The femoral and tibial components appear well seated. Overlying drains. There is aortic the soft tissues consistent with recent surgery. IMPRESSION: Postsurgical changes of a total right knee arthroplasty. Electronically signed by: Jim Peters M.D. 07/04/2018 12:59 PM ECG Additional Comments: EKG 07/07/2018 at 10:31 AM Normal sinus rhythm with a ventricular rate of 94 bpm There is evidence of left axis deviation which is consistent with previous EKG QTC is 4 3 7 ms MI interval 196 There is no significant change as compared to prior EKG of 06/12/[address] changes Await confirmation from plastic parts fabricator trimmer but I do not see any acute changes
[2018-07-07 14:26] LABS: Hematocrit (blood only) 25.9 % (42-52); Hemoglobin 9.1 g/dL (14.0-18.0)
[2018-07-07] MEDS: ATORVASTATIN 40 MG TAB PO SCH (20:14)
[2018-07-07] MEDS: SENNA 8.6 MG TAB PO SCH (20:15)
[2018-07-08] MEDS: NSS + 20MEQ KCL 20 MEQ/1,000 ML BAG IV SCH ×3 (03:55→17:14)
[2018-07-08] MEDS: OXYCODONE HCL IR 5 MG TAB (IMMEDIATE RELEASE) PO PRN (05:21)
[2018-07-08] MEDS: ACETAMINOPHEN 500 MG TAB PO SCH (05:21)
[2018-07-08 06:53] LABS: Eosinophils # (auto) 0.11 K/uL (0-0.5); Eosinophils % (auto) 2.5 %; Hematocrit (blood only) 26.2 % (42-52); Hemoglobin 9.1 g/dL (14.0-18.0); Immature Granulocytes # (auto) 0.03 K/uL (0.00-0.02); Immature Granulocytes % (auto) 0.7 %; Lymphocytes # (auto) 0.65 K/uL (1.2-3.4); Lymphocytes % (auto) 14.8 %; Mean Corpuscular Hgb Conc 34.7 g/dL (32-36); Mean Corpuscular Volume 96.3 fL (80-100); Mean Platelet Volume 11.2 fL (7.4-10.4); Monocytes # (auto) 0.65 K/uL (0.11-0.59); Monocytes % (auto) 14.8 %; Neutrophils # (auto) 2.96 K/uL (1.4-6.5); Neutrophils % (auto) 67.2 %; Platelet Count 138 K/uL (130-400); RDW Coefficient of Variation 13.4 % (11.5-14.5); Red Blood Count 2.72 M/uL (4.7-6.1)
[2018-07-08] MEDS: HYDROmorphone INJ 1 MG/ML SYRINGE IV PRN ×3 (07:36→17:14)
[2018-07-08] MEDS: TAMSULOSIN HCL 0.4 MG CAP PO SCH (09:18)
[2018-07-08] MEDS: DOCUSATE SODIUM 100 MG CAP PO SCH ×2 (09:18→20:25)
[2018-07-08] MEDS: METOPROLOL TARTRATE 25 MG TAB PO SCH ×2 (09:19→20:25)
[2018-07-08] MEDS: MoRPHine SULFATE CR 15 MG TABCR PO SCH ×2 (09:19→20:26)
[2018-07-08] MEDS: RANOLAZINE 500 MG ER TAB PO SCH ×2 (09:20→20:25)
[2018-07-08] MEDS: RIVAROXABAN 10 MG TABLET PO SCH (09:20)
[2018-07-08] MEDS: PANTOprazole 40 MG TAB PO SCH (09:20)
[2018-07-08] MEDS: MULTIVITAMIN TAB PO SCH (09:20)
--- NOTE | 2018-07-08 10:30 | Orthopedic Progress Note ---
Date of Service July 08, 2018 Assessment & Plan (1) Bilateral primary osteoarthritis of knee: Postop day 3 status post bilateral total knee arthroplasty. Orthostatic hypotension when out of bed. We will see how he does today. Pt states he did well this AM in PT but became LH after PT with drop in his SBP again. Nursing will continue to hold his metoprolol/Tamsulosin at this time as needed. Conferring with Dr Carney concerning his orthostatic hypotension. Continue PT and OT protocols weightbearing as tolerated as able. DVT prophylaxis with rivaroxaban, SCDs, LARS hose. Pain management with acetaminophen, Hydrocodone , MS Contin, Hydromorphone DC planning- Pt was hoping for HH services however with continued LH, now asking about rehab/SNF. CM to arrange if needed. Subjective Lying in bed. Pt noted to be shivering when I came in. States he does feel a bit cold, tired. He awoke this AM feeling good to the point he felt "normal". He was able to get up to the bedside and do his morning routine. Did well in PT but when he returned to the room, he became dizzy/LH and SBP was noted to be in the 80's. No other complaints. Pain control is adequate currently but he is still using the IV Dilaudid on occasion. Denies SOB,CP. Physical Exam Physical Exam: RIVAS dressings C/D/I. Calves soft, NT. NV intact. Toes mobile. Results & Data Vital Signs (Past 12 Hours) Vital Signs Temp Pulse Pulse Resp BP Pulse Ox 07/08/18 07:05 37.2 C 85 18 112/65 94 07/07/18 23:00 37.5 C 87 16 123/68 95
[2018-07-08] MEDS ORDERED: OPTIRAY 320 125ml IV PRN (11:21)
--- NOTE | 2018-07-08 11:40 | CT Scan Report ---
CHEST CTA for PULMONARY ARTERIES CT DOSE: 342.84 mGy.cm HISTORY: Recent knee surgery. Syncope. TECHNIQUE: Multiaxial CT images of the chest were performed following the intravenous administration of contrast to evaluate the pulmonary arteries. Maximal intensity projection images were also obtaine d. A dose lowering technique was utilized adhering to the principles of ALARA. COMPARISON STUDY: None. FINDINGS: Normal caliber thoracic aorta with no evidence for dissection. The heart is normal in size. No pleural or pericardial effusions. No filling defects within the pulmonary arteries to suggest pul monary embolus. The visualized liver and spleen are unremarkable. No mediastinal or hilar lymphadenop athy. Normal esophagus. Tiny hiatus hernia. No fractures within the visualized osseous structures. No pneumothorax. Bibasilar linear densities likely represent subsegmental atelectasis. The central airw ays are patent. No focal lung consolidations to suggest pneumonia. A 4 mm nodule within the right nita g apex on image 237. There is a 5 mm right middle lobe nodule on image 122. IMPRESSION: 1. No evidence for pulmonary embolus. 2. Subcentimeter indeterminate pulmonary nodules within the right lung with the largest in the right middle lobe measuring 5 mm as described above. Please refer to the chart below for recommended follow -up. Please refer to below summary of Fleischner criteria recommendations for follow-up of incidental CT n odules (Julio Cesar Mejia, Guidelines for management of small pulmonary nodules detected on CT scans: A sta tement from the Fleischner Society, Radiology 237: [phone].) SOLID NODULES Solitary nodule size: <6 mm * Low risk patients: no follow-up needed * high risk patients: optional CT at 12 months Solitary nodule size: 6-8 mm * Low risk patients: follow-up at 6-12 months, then consider further follow-up at 18-24 months * high risk patients: initial follow-up CT at 6-12 months and then at 18-24 months if no change Solitary nodule size: >8 mm * either low or high risk patients - consider follow-up CT at 3 months, and/or CT-PET, and/or biopsy Multiple nodules size: <6 mm * Low risk patients: no routine follow-up * high risk patients: optional CT at 12 months Multiple nodules size: 6-8 mm * Low risk patients: follow-up at 3-6 months, then consider further follow-up at 18-24 months * high risk patients: follow-up at 3-6 months, then at 18-24 months if no change Multiple nodules size: >8 mm * Low risk patients: follow-up at 3-6 months, then consider further follow-up at 18-24 months * high risk patients: follow-up at 3-6 months, then at 18-24 months if no change Note: newly detected indeterminate nodule in persons 35 years of age or older. * Low risk patients: minimal or absent history of smoking and/or other known risk factors * high risk patients: history of smoking or of other known risk factors (e.g. first degree relative with lung cancer, or exposure to asbestos, radon, uranium) * if a nodule up to 8 mm is partly solid or is ground glass further follow-up is required after 24 m onths to exclude possible slow growing adenocarcinoma (LLOYD) SUBSOLID NODULES Solitary pure ground-glass nodule * nodule size <6 mm - no CT follow-up required * nodule size >=6 mm - follow-up CT at 6-12 months, then every 2 years until 5 years Solitary part-solid nodule * nodule size <6 mm - no CT follow-up required * nodule size >=6 mm - follow-up CT at 3-6 months. If unchanged, and solid component remains <6 mm, then annual follow-up for 5 years Multiple subsolid nodules * nodule size <6 mm - follow-up CT at 3-6 months, consider further follow-up at 2 and 4 years if sta ble * nodule size >=6 mm - follow-up CT at 3-6 months, subsequent management based on the most suspiciou s nodule(s) Electronically signed by: Win Worthington M.D. 07/08/2018 11:39 AM
[2018-07-08] MEDS: KETOROLAC 30 MG/ML VIAL IV PRN (11:57)
[2018-07-08] MEDS: HYDROCODONE/ACETAMOPHEN 5/325MG TAB PO PRN ×3 (13:39→23:19)
--- NOTE | 2018-07-08 14:27 | Hospitalist Progress Note ---
Date of Service July 08, 2018 Assessment & Plan (1) Orthostatic hypotension: No structural cardiac issues per report of patient with most recent outpatient echocardiogram Date of heart cath in July 2017 which is unremarkable Could also be secondary to medications which include Lopressor, Ranexa, Flomax, MS Contin, Dilaudid, Roxanol CT ruled out PE we will hold Flomax (2) Anemia: Presenting hemoglobin was 14 HgB today 9.1 which is acute blood loss anemia No indication for transfusion at this time continue hydration (3) S/p total knee replacement, bilateral: Surgeon was Dr. Walton No apparent complications from surgery (4) CAD (coronary artery disease): metoprolol tartrate 25 mg p.o. twice daily and Ranexa 1 g p.o. twice daily Patient is not on an ANG or an ARB atorvastatin Ranexa was added for symptom control although no definite flow reducing lesion seen on Cath from 08/2017 (5) DVT prophylaxis: rivaroxaban Subjective Patient had another episode of orthostatically related symptoms with minor drop in blood pressure tremulousness and lightheadedness. CT angiogram was performed to rule out pulmonary embolism in the postoperative state from orthopedic surgery which was ruled out. He does take tamsulosin which may accentuate orthostatic changes this will be held this evening he continues to be hydrated with IV fluids Review of Systems Review of Systems: ROS: well nourished well developed. No double vision blurry vision No problems with speech or swallowing No palpitations, chest pain or pressure did feel lightheaded with standing No Wheezing or breathing issues No abdominal pain nausea vomiting diarrhea changes in appetite or weight No burning urine urine frequency or changes in color No focal joint pain or muscle pain No skin rashes or oral lesions No unusual bruising or bleeding No focused back pain or numbness or loss of strength did feel tremulous with the symptoms of started No changes in memory or confusion Physical Exam Physical Exam: The patient appeared well nourished and normally developed. Vital signs as documented. No documented temperature Head exam is unremarkable. normocephalic, atraumatic Neck is without jugular venous distension, thyromegaly, or lymphademopathy Lungs are clear to auscultation and percussion. Cardiac exam reveals Rhythm is regular. No rubs no murmurs Abdominal exam reveals normal bowel sounds, no masses, no organomegaly Extremities are nonedematous and both pedal pulses are present Neurologic exam is A&Ox3, no focal deficits, Psychologically seems anxious Skin is warm Dry without bruises or lesions Results & Data Vital Signs (Past 12 Hours) Vital Signs Temp Pulse Resp BP Pulse Ox 07/08/18 07:05 37.2 C 85 18 112/65 94
[2018-07-08] MEDS: MAGNESIUM HYDROXIDE SUSP 30 ML UDC PO PRN ×2 (17:26→23:18)
[2018-07-08] MEDS: ATORVASTATIN 40 MG TAB PO SCH (20:25)
[2018-07-08] MEDS: SENNA 8.6 MG TAB PO SCH (20:26)
[2018-07-09] MEDS: NSS + 20MEQ KCL 20 MEQ/1,000 ML BAG IV SCH ×3 (01:10→20:00)
[2018-07-09] MEDS: HYDROmorphone INJ 1 MG/ML SYRINGE IV PRN (01:20)
[2018-07-09] MEDS: MoRPHine SULFATE CR 15 MG TABCR PO SCH ×2 (07:33→20:53)
[2018-07-09] MEDS: HYDROCODONE/ACETAMOPHEN 5/325MG TAB PO PRN ×4 (07:33→22:43)
[2018-07-09] MEDS: DOCUSATE SODIUM 100 MG CAP PO SCH ×2 (07:34→20:53)
[2018-07-09] MEDS: METOPROLOL TARTRATE 25 MG TAB PO SCH ×2 (07:34→18:52)
[2018-07-09] MEDS: PANTOprazole 40 MG TAB PO SCH (07:35)
[2018-07-09] MEDS: MULTIVITAMIN TAB PO SCH (07:35)
[2018-07-09] MEDS: RIVAROXABAN 10 MG TABLET PO SCH (07:35)
[2018-07-09] MEDS: RANOLAZINE 500 MG ER TAB PO SCH ×2 (07:36→20:53)
--- NOTE | 2018-07-09 11:10 | Orthopedic Progress Note ---
Date of Service July 09, 2018 Assessment & Plan (1) Bilateral primary osteoarthritis of knee: Postop day 4 status post bilateral total knee arthroplasty. Orthostatic hypotension when out of bed. We will see how he does today. Pt states he did well this AM in PT but became LH after PT with drop in his SBP again. Nursing will continue to hold his metoprolol/Tamsulosin at this time as needed. Conferring with Dr Carney concerning his orthostatic hypotension. CTA ordered yesterday as noted above with negative PE. Repeat H&H this morning shows a drop to 8.5. I discussed this with Dr. Carney this morning. Will order 1 unit of PRBC's today. Also h/o PUD without incident in a year. Check stool for occult blood. Continue PT and OT protocols weightbearing as tolerated as able. DVT prophylaxis with rivaroxaban, SCDs, LARS hose. Pain management with acetaminophen, Hydrocodone , MS Contin, Toradol. Plan to discontinue IV Dilaudid. DC planning- Pt was hoping for HH services however with continued LH, now asking about rehab/SNF. CM to arrange if needed. Subjective Patient currently lying in bed this morning upon visit. Patient feeling discouraged because he continues to get dizzy and lightheaded and drop his blood pressures during his physical therapy session. He ambulated 120 feet this morning however again dropped his blood pressure and became lightheaded and dizzy. We had switched his oxycodone to hydrocodone which he notes no difference with pain control and/or increase or decrease in dizziness when up. No other complaints at this time. Denies shortness of breath, chest pain. Noted CTA done yesterday was negative for PE. Physical Exam Physical Exam: Aylin dressings are clean dry and intact. Calves are soft no ntender. Neurovascular intact. Toes are mobile. Results & Data Vital Signs (Past 12 Hours) Vital Signs Temp Pulse Resp BP Pulse Ox 07/09/18 06:39 37.1 C 101 H 18 137/78 94 07/08/18 23:21 36.9 C
[2018-07-09 11:28] LABS: BUN Creatinine Ratio 11.3 (10-20); Calcium 8.2 mg/dl (8.5-10.1); Creatinine Clr Calc Pharmacy 115.3 ml/min; Est GFR (African American) 114.1; Est GFR (Non-African American) 98.5; Potassium 4.5 mmol/L (3.5-5.1)
[2018-07-09] MEDS ORDERED: SODIUM CHLORIDE 0.9% 250 ML IV PRN (11:30)
--- NOTE | 2018-07-09 14:46 | Hospitalist Progress Note ---
Date of Service July 09, 2018 Assessment & Plan (1) Orthostatic hypotension: No structural cardiac issues per report of patient with most recent outpatient echocardiogram Date of heart cath in July 2017 which is unremarkable Could also be secondary to medications which include Lopressor, Ranexa, Flomax, MS Contin, Dilaudid, Roxanol CT ruled out PE, hold Flomax, transfusion 07/08/18 (2) Anemia: Presenting hemoglobin was 14 HgB today 9.1 which is acute blood loss anemia No indication for transfusion at this time continue hydration (3) S/p total knee replacement, bilateral: Surgeon was Dr. Walton No apparent complications from surgery (4) CAD (coronary artery disease): metoprolol tartrate 25 mg p.o. twice daily and Ranexa 1 g p.o. twice daily Patient is not on an ANG or an ARB atorvastatin Ranexa was added for symptom control although no definite flow reducing lesion seen on Cath from 08/2017 (5) DVT prophylaxis: rivaroxaban Subjective pt has had recurrence of orthostasis will have transfusion today, no chest pain Review of Systems Review of Systems: ROS: well nourished well developed. No double vision blurry vision No problems with speech or swallowing No palpitations, chest pain or pressure No Wheezing or breathing issues No abdominal pain nausea vomiting diarrhea changes in appetite or weight No burning urine urine frequency or changes in color No skin rashes or oral lesions No unusual bruising or bleeding No focused back pain or numbness or loss of strength No changes in memory or confusion Physical Exam Physical Exam: The patient appeared well nourished and normally developed. Vital signs as documented. Head exam is unremarkable. normocephalic, atraumatic Neck is without jugular venous distension, thyromegaly, or lymphademopathy Lungs are clear to auscultation and percussion. Cardiac exam reveals Rhythm is regular. First and second heart sounds normal. Abdominal exam reveals normal bowel sounds, no masses, no organomegaly Neurologic exam is A&Ox3, no focal deficits, strength is equal bilateral Psychologically seems neither anxious or depressed Skin is warm Dry without bruises or lesions Results & Data Vital Signs (Past 12 Hours) Vital Signs Temp Pulse Pulse Resp BP BP Pulse Ox 07/09/18 14:31 37.3 C 89 18 116/71 97 07/09/18 14:04 37.1 C 92 H 18 118/74 96 07/09/18 14:00 37.5 C 90 15 122/75 97 07/09/18 13:49 37.4 C 93 H 18 110/69 99 07/09/18 13:31 36.8 C 92 H 18 126/74 07/09/18 06:39 37.1 C 101 H 18 137/78 94
[2018-07-09] MEDS: ATORVASTATIN 40 MG TAB PO SCH (20:53)
[2018-07-09] MEDS: SENNA 8.6 MG TAB PO SCH (20:53)
[2018-07-09 22:45] VITALS: O2SAT 96
[2018-07-09] MEDS: KETOROLAC 30 MG/ML VIAL IV PRN (23:26)
[2018-07-10] MEDS: NSS + 20MEQ KCL 20 MEQ/1,000 ML BAG IV SCH ×2 (03:38→10:24)
[2018-07-10] MEDS: HYDROCODONE/ACETAMOPHEN 5/325MG TAB PO PRN ×4 (03:40→15:35)
[2018-07-10 06:55] LABS: Basophils # (auto) 0.02 K/uL (0-0.2); Basophils % (auto) 0.5 %; Eosinophils # (auto) 0.14 K/uL (0-0.5); Eosinophils % (auto) 3.6 %; Hematocrit (blood only) 27.7 % (42-52); Hemoglobin 9.5 g/dL (14.0-18.0); Immature Granulocytes # (auto) 0.03 K/uL (0.00-0.02); Immature Granulocytes % (auto) 0.8 %; Lymphocytes # (auto) 0.51 K/uL (1.2-3.4); Lymphocytes % (auto) 12.9 %; Mean Corpuscular Hgb Conc 34.3 g/dL (32-36); Mean Corpuscular Volume 97.5 fL (80-100); Mean Platelet Volume 9.9 fL (7.4-10.4); Monocytes # (auto) 0.74 K/uL (0.11-0.59); Monocytes % (auto) 18.8 %; Neutrophils % (auto) 63.4 %; Platelet Count 180 K/uL (130-400); RDW Coefficient of Variation 13.2 % (11.5-14.5); Red Blood Count 2.84 M/uL (4.7-6.1); White Blood Count 3.94 K/uL (4.8-10.8)
--- NOTE | 2018-07-10 07:51 | Orthopedic Progress Note ---
Date of Service July 10, 2018 Assessment & Plan (1) Bilateral primary osteoarthritis of knee: Postop day 5 status post bilateral total knee arthroplasty. Orthostatic hypotension when out of bed. We will see how he does today. Nursing will continue to hold his metoprolol/Tamsulosin at this time as needed. Conferring with Dr Carney concerning his orthostatic hypotension. CTA negative PE. Hgb drop to 8.5. Transfused 1 unit of PRBC's yesterday. Also h/o PUD without incident in a year. Check stool for occult blood. Continue PT and OT protocols weightbearing as tolerated as able. DVT prophylaxis with rivaroxaban, SCDs, LARS hose. Pain management with acetaminophen, Hydrocodone , MS Contin, Toradol. Plan to discontinue IV Dilaudid. DC planning- SNF today if progressing with his PT and BP's remain stable. Subjective Patient is awake and alert and oriented. States he feels very good this morning. Looking forward to getting up to trying PT again. States that he has things set up for skilled facility up near his home. No new complaints. Denies shortness of breath, chest pain, lightheadedness at this point time. Pain controlled at this time. Physical Exam Physical Exam: Aylin dressings are clean dry and intact. Calves are soft nontender. Neurovascular is intact. Toes are mobile. Results & Data Vital Signs (Past 12 Hours) Vital Signs Temp Pulse Resp BP Pulse Ox 07/09/18 22:44 37.5 C 89 16 128/72 96 Laboratory Results Laboratory Results WBC 3.94 K/uL (4.8-10.8) L 07/10/18 06:31 RBC 2.84 M/uL (4.7-6.1) L 07/10/18 06:31 Hgb 9.5 g/dL (14.0-18.0) L 07/10/18 06:31 Hct 27.7 % (42-52) L 07/10/18 06:31 MCV 97.5 fL (80-100) 07/10/18 06:31 MCH 33.5 pg (25-34) 07/10/18 06:31 MCHC 34.3 g/dL (32-36) 07/10/18 06:31 RDW Std Deviation 47.0 fL (36.4-46.3) H 07/10/18 06:31 RDW Coeff of Grzegorz 13.2 % (11.5-14.5) 07/10/18 06:31 Plt Count 180 K/uL (130-400) 07/10/18 06:31 MPV 9.9 fL (7.4-10.4) 07/10/18 06:31 Immature Gran % (Auto) 0.8 % 07/10/18 06:31 Neut % (Auto) 63.4 % 07/10/18 06:31 Lymph % (Auto) 12.9 % 07/10/18 06:31 [place] % (Auto) 18.8 % 07/10/18 06:31 Eos % (Auto) 3.6 % 07/10/18 06:31 Baso % (Auto) 0.5 % 07/10/18 06:31 Immature Gran # (Auto) 0.03 K/uL (0.00-0.02) H 07/10/18 06:31 Neut # (Auto) 2.50 K/uL (1.4-6.5) 07/10/18 06:31 Lymph # (Auto) 0.51 K/uL (1.2-3.4) L 07/10/18 06:31 [place] # (Auto) 0.74 K/uL (0.11-0.59) H 07/10/18 06:31 Eos # (Auto) 0.14 K/uL (0-0.5) 07/10/18 06:31 Baso # (Auto) 0.02 K/uL (0-0.2) 07/10/18 06:31 PT 11.9 Seconds (9.0-12.0) 06/12/18 14:07 INR 1.2 (0.9-1.1) H 06/12/18 14:07 APTT 25.6 Seconds (21.0-31.0) 06/12/18 14:07 PTT Ratio 0.9 06/12/18 14:07 Sodium 138 mmol/L (136-145) 07/09/18 10:38 Potassium 4.5 mmol/L (3.5-5.1) 07/09/18 10:38 Chloride 105 mmol/L (98-107) 07/09/18 10:38 Carbon Dioxide 29 mmol/L (21-32) 07/09/18 10:38 4.0 (3-11) 07/09/18 10:38 BUN 9 mg/dl (7-18) 07/09/18 10:38 0.80 mg/dl (0.6-1.4) 07/09/18 10:38 Est Cr Clr Drug Dosing 115.3 ml/min 07/09/18 10:38 Est GFR ( Amer) 114.1 07/09/18 10:38 Est GFR (Non-Af Amer) 98.5 07/09/18 10:38 11.3 (10-20) 07/09/18 10:38 Glucose 113 mg/dl (70-99) H 07/09/18 10:38 Estimat Average Glucose 126 mg/dl 06/12/18 14:07 6.0 % (4.5-5.6) H 06/12/18 14:07 Calcium 8.2 mg/dl (8.5-10.1) L 07/09/18 10:38 Magnesium 1.9 mg/dl (1.8-2.4) 07/07/18 09:38 3.5 gm/dl (3.4-5.0) 06/12/18 14:07 Dark Yellow 06/12/18 14:07 Cloudy (Clear) H 06/12/18 14:07 5.0 (4.5-7.5) 06/12/18 14:07 Ur Specific [place] 1.035 (1.000-1.030) H 06/12/18 14:07 Negative (Negative) 06/12/18 14:07 Negative (Negative) 06/12/18 14:07 Trace (Negative) H 06/12/18 14:07 Negative (Negative) 06/12/18 14:07 Negative (Negative) 06/12/18 14:07 Negative (Negative) 06/12/18 14:07 Negative (Negative) 06/12/18 14:07 Ur Leukocyte Esterase Trace (Negative) H 06/12/18 14:07 5-10 /hpf (0-5) H 06/12/18 14:07 5-10 /hpf (0-4) H 06/12/18 14:07 U Hyaline Cast (Auto) 1-5 /lpf (0-5) 06/12/18 14:07 U Epithel Cells (Auto) 10-20 /lpf (0-5) H 06/12/18 14:07 Negative (Negative) 06/12/18 14:07 Stool Occult Bld Scrn Negative (Negative) 07/09/18 06:48 Blood Type O Positive 07/09/18 11:44 Antibody Screen NEGATIVE 07/09/18 11:44 Crossmatch See Detail 07/09/18 11:44
[2018-07-10] MEDS: RIVAROXABAN 10 MG TABLET PO SCH (08:35)
[2018-07-10] MEDS: MULTIVITAMIN TAB PO SCH (08:35)
[2018-07-10] MEDS: DOCUSATE SODIUM 100 MG CAP PO SCH (08:35)
[2018-07-10] MEDS: METOPROLOL TARTRATE 25 MG TAB PO SCH (08:35)
[2018-07-10] MEDS: RANOLAZINE 500 MG ER TAB PO SCH (08:35)
[2018-07-10] MEDS: PANTOprazole 40 MG TAB PO SCH (08:35)
[2018-07-10] MEDS: MoRPHine SULFATE CR 15 MG TABCR PO SCH (08:40)
[2018-07-10 08:47] VITALS: TEMP 98.1
[2018-07-10 13:03] VITALS: BP 117/79; PULSE 115
--- NOTE | 2018-07-10 14:33 | Hospitalist Progress Note ---
Date of Service July 10, 2018 Assessment & Plan (1) S/p total knee replacement, bilateral: - POD#5 following procedure. - PT/OT -- discharge to SNF vs. home with home health depending on pt. progress. - DVT ppx with Xarelto. - Pain management per primary team. (2) Orthostatic hypotension: - Most recent cardiac cath in July 2017 was negative. - Echo showed EF 55-60%, mild MVP, mild to mod mitral regurg and borderline aortic root dilation. - CT PE was negative. - May be medication induced -- Lopressor, Ranexa, Flomax, MS Contin, Roxanol. Holding home Flomax, continue all other meds due to cardiac history and acute pain. - Dizziness/orthostasis improved following PRBC transfusion on 07/09. - D/c'ed IV fluids this morning -- monitor for stable orthostatics after removing IV fluids. (3) Anemia: - Received 1 unit pRBC on 07/09, H/H is stable. - Monitor CBC qAM. (4) Hypertension: - Continue Metoprolol as prescribed. - Monitor BP closely. (5) CAD (coronary artery disease): - Continue beta zina, ranexa and statin as prescribed. - Ranexa was added for symptom control although no definite flow reducing lesion seen on Cath from 08/2017. (6) BPH (benign prostatic hyperplasia): - Holding home Flomax due to orthostatic hypotension. (7) DVT prophylaxis: - Xarelto. Dispo: Pt. is medically stable, will sign off. Please call with any questions. Supervising Physician Co-Signing Physician Notes Attending Attestation - Chart reviewed, care plan d/w KRYSTAL Kaiser. I agree w/ the mcclellan components of her documentation. Pt is s/p bilateral TKR. Acute blood loss anemia s/p 1 unit PRBCs. Orthostasis improved. Other labs acceptable. Blue Cheema MD Subjective Pt. is doing well overall. Reports dizziness and tachycardia now resolved following blood transfusion on 07/09/18. Is stable for discharge, may be discharged to home. Case management following. Review of Systems Review of Systems: All systems reviewed & are unremarkable except as noted in HPI & below Constitutional: no fever, no chills, no fatigue and no weakness Respiratory: no cough, no dyspnea, no dyspnea on exertion and no wheezing Cardiovascular: no chest pain, no palpitations, no syncope and no edema Gastrointestinal: no abdominal pain, no nausea, no vomiting, no constipation and no diarrhea/loose stools Genitourinary: no difficulty urinating Musculoskeletal: no back pain and no joint pain Integumentary: no non-healing lesions Allergy / Immunological: no rash Physical Exam Physical Exam: General: Resting comfortably in no apparent distress HEENT: NC/AT; PERRLA with EOMI; [place] conjunctiva, MMM. No erythema of posterior pharynx Neck: Supple and nontender Cardiac: RRR Lungs: CTA bilaterally Abdomen: Bowel normoactive X 4; Nontender to palpation Extremities: Warm. No edema present Neuro: No focal weakness Skin: No rash Results & Data Vital Signs (Past 12 Hours) Vital Signs Temp Pulse Pulse Pulse Pulse Resp BP 07/10/18 13:00 36.7 C 82 91 H 85 115 H 20 122/76 07/10/18 11:21 91 H 122/76 07/10/18 11:19 91 H 123/77 07/10/18 07:25 36.7 C 82 20 130/80 BP Pulse Ox 07/10/18 13:00 117/79 96 07/10/18 11:21 07/10/18 11:19 117/79 07/10/18 07:25 96 Laboratory Results 07/10/18 07/09/18 Range/Units 06:31 11:44 WBC 3.94 L (4.8-10.8) K/uL RBC 2.84 L (4.7-6.1) M/uL Hgb 9.5 L (14.0-18.0) g/dL Hct 27.7 L (42-52) % MCV 97.5 (80-100) fL MCH 33.5 (25-34) pg MCHC 34.3 (32-36) g/dL RDW Std Deviation 47.0 H (36.4-46.3) fL RDW Coeff of Grzegorz 13.2 (11.5-14.5) % Plt Count 180 (130-400) K/uL MPV 9.9 (7.4-10.4) fL Immature Gran % (Auto) 0.8 % Neut % (Auto) 63.4 % Lymph % (Auto) 12.9 % [place] % (Auto) 18.8 % Eos % (Auto) 3.6 % Baso % (Auto) 0.5 % Immature Gran # (Auto) 0.03 H (0.00-0.02) K/uL Neut # (Auto) 2.50 (1.4-6.5) K/uL Lymph # (Auto) 0.51 L (1.2-3.4) K/uL [place] # (Auto) 0.74 H (0.11-0.59) K/uL Eos # (Auto) 0.14 (0-0.5) K/uL Baso # (Auto) 0.02 (0-0.2) K/uL Crossmatch See Detail
--- NOTE | 2018-07-10 17:16 | Discharge Summary ---
Date of Service Date of Discharge: July 10, 2018 Date of Admission: 07/04/18 Admission HPI Per Admitting Provider Mr Burton is a 57 year old male who complains of bilateral knee pain, presents for pre-op evaluation prior to bilateral total knee replacements on 07-04-18 at [facility]. He presents with pain on the right and left side equally. He states that the symptoms have been chronic non-traumatic and occur intermittently. Currently the patient states that the symptoms are moderate-severe. The pain is described as aching and sometime sharp. The patient is experiencing pain diffusely in both knees, He rates his current pain as 5/10 and worst is 7/10. The symptoms are aggravated by ascending stairs, daily activities and walking/standing for long periods of time. He states that the symptoms are relieved by no specific activity. In addition to knee pain equally on both sides the patient is also experiencing difficulty bending, pain after activity and stiffness. Patient had cortisone injections in both knees by PCP on 04/11/18 with no relief. He has tried PO NSAIDs as well as Tylenol with little relief. Principal Diagnosis bilateral knee osteoarthritis Discharge Exam Musculoskeletal Bilateral knees: NVDI, calf SNT, negative yared sign. DP palpable, able to wiggle toes/ankle movement without difficulty. RIVAS dressing clean dry and intact. expected post-operative bruising noted. Discharge Data Allergies Allergy/AdvReac Type Severity Reaction Status Date / Time No Known Allergies Allergy Verified 07/04/18 07:55 Consultations 07/04/18 13:34 Consult Case Management - Discharge Planning Routine 07/07/18 09:24 Consult Hospitalist Routine 07/08/18 11:55 Consult Lung Nodule Program Routine Procedures Performed Operation Date: 07/04/18 09:55 Actual Procedures p Bilateral Total Knee Arthroplasty(Bilateral) - Huy Walton DO Ordered Studies 07/04/18 05:00 US - OR guided needle placemen Routine 07/08/18 10:55 CT angio chest PE protocol Routine Hospital Course (1) Bilateral primary osteoarthritis of knee: Postop day 5 status post bilateral total knee arthroplasty. Orthostatic hypotension when out of bed. Nursing will continue to hold his metoprolol/Tamsulosin at this time as needed. Underwent CTA and was negative PE. Hgb drop to 8.5. Transfused 1 unit of PRBC's and responded well. Also h/o PUD without incident in a year. Check stool for occult blood. Continue PT and OT protocols weightbearing as tolerated as able. DVT prophylaxis with rivaroxaban, SCDs, LARS hose. Pain management with acetaminophen, Hydrocodone , MS Contin, Toradol. Plan to discontinue IV Dilaudid. Total Time Total Time Spent Total Time Spent (In Minutes): 30 Total Time Includes: Examination of the Patient, Discharge Planning, Medication Reconciliation and Communication With Other Providers Discharge Plan Discharge Items Patient Disposition: Home - Home Health Services Reason For Visit: Bilateral primary osteoarthritis of knee Discharge Diagnosis: Bilateral Knee Osteoarthritis Discharge Goals: Decrease discomfort and Improve function Activity: Per 'Additional Instructions' section Weightbearing: Left weightbearing and Right weightbearing Weightbearing Comment: as tolerated with walker Non-emergency contact: Surgeon Call non-emergency contact if: your pain is not controlled, your temperature is above 101.5, your wound has increased redness and your wound has increased drainage Follow-up/Referrals: PCP,NO [Primary Care Provider] - Diet: Regular Addtl Provider Instructions: ACTIVITY RECOMMENDATIONS: SELF CARE INSTRUCTIONS AFTER TOTAL KNEE REPLACEMENT A. You may need to continue a physical therapy program after discharge from the hospital. There are several options available to you. Your doctor will assist you in selecting the best one for you. 1. An out-patient facility 2 to 3 times a week for therapy or home therapy. 2. Continue working on all exercises taught to you in the hospital. Your goals should be to increase bending of your knee to 90 degrees and beyond and to fully straighten your knee. B. You may progress at your own pace from walking with a walker or crutches to a cane; then to no assistive devices. C. Make walking a part of your daily routine. Be up as much as comfortable with rest periods throughout the day. Rest with leg elevation is very important. Use the ice wrap frequently for the first 3-4 weeks. D. There are no restrictions on activities. You may ride in a car, shop, participate in assistant grocery store manager and all social activities. E. Wear the long elastic stockings (LARS hose) 20 hours a day for 2 weeks after surgery. They can be removed several times a day for laundering and for a bath. F. You may shower, no tub baths until cleared by your doctor. SPECIAL CARE INSTRUCTIONS: VERY IMPORTANT TO READ AND REVIEW A. There are a few signs you need to watch for after you are home. Call [facility] if you notice any of the followin. Increased severe knee pain. Some pain is expected especially when you exercise. 2. Increased swelling in your leg or knee; pain or swelling of the calf muscle in either lower leg. 3. Any fluid drainage from the incision. 4. Shortness of breath or chest pain. B. Please call [facility] at if you have any concerns or questions about your operation or recovery. The doctor or his nurse will return your call promptly. C. You must take antibiotics before dental work, bladder, bowel or other surgery. Your doctor will provide you with a permanent care to carry describing this precaution. IMPORTANT: * REMEMBER TO TAKE RIVAROXABAN 10MG, ONCE DAILY FOR 4 WEEKS UNLESS OTHERWISE DIRECTED. THIS IS YOUR BLOOD THINNER. * HIGH RISK PATIENTS MAY BE PRESCRIBED A STRONGER BLOOD THINNER. THIS WILL BE PROVIDED AT DISCHARGE. * CALL IF INCREASED PAIN, REDNESS, DRAINAGE OR FEVER GREATER THAT 101. * WEAR LARS HOSE 20 HOURS PER DAY FOR 2 WEEKS. * RIVAS dressing- This is a large suction dressing covering your incision. This will help pull any excess drainage from the wound and allow your incision to heal properly. You may shower with this if you can keep the unit outside of the shower. If any bleeding or leakage is noted please call your doctor's office. This will remain on your incision for 7 days and then should be removed. This can be done yourself or by the home nursing staff if applicable. The entire unit is disposable once removed. Once removed, keep incision clean and dry. If redness or drainage is noted, please call your surgeon. . FOLLOW UP VISIT: If appointment is not already scheduled: Please call [facility] to make a follow-up appointment for 2 weeks after your surgery at . PLEASE FOLLOW UP WITH YOUR PCP IN 7-10 DAYS. IF YOU BEGIN HAVING DIZZINESS AGAIN, PLEASE CALL YOUR PCP TO DISCUSS. Prescriptions: New Xarelto 10 mg Tablet 10 mg PO DAILY Qty: 24 RF: 0 morphine 15 mg Tablet Extended Release 15 mg PO Q12 Qty: 10 RF: 0 sennosides [Senokot] 8.6 mg Tablet 17.2 mg PO HS 10 Days Qty: 20 RF: 0 cefadroxil 500 mg capsule 500 mg PO BID Qty: 14 RF: 0 acetaminophen 500 mg capsule 1,000 mg PO Q8H 14 Days Qty: 84 RF: 0 oxycodone 5 mg Tablet 5 - 10 mg PO Q6H PRN (Reason: pain) Qty: 30 RF: 0 Continued atorvastatin 40 mg Tablet 40 mg PO HS RF: 0 tamsulosin 0.4 mg Capsule 0.4 mg PO BID RF: 0 [id number] [Butalbital Compound W/Codeine] [id number] mg Capsule 1 cap PO Q6H PRN (Reason: Migraine Headache) RF: 0 diphenhydramine HCl [Benadryl] 25 mg Capsule 25 mg PO Q6H PRN (Reason: allergies) RF: 0 nitroglycerin 0.4 mg Tablet, Sublingual 1 tab sublingual DIRECTED RF: 0 metoprolol tartrate 25 mg Tablet 25 mg PO BID RF: 0 ranolazine [Ranexa] 1,000 mg Tablet Extended Release 12 Hr 1,000 mg PO BID RF: 0 Dexilant 60 mg Capsule,Biphase Delayed Releas 60 mg PO QAM RF: 0 Betaprostate 1 tab PO QAM RF: 0 Hemp Oil 1 dose PO HS PRN (Reason: Migraine Headache) RF: 0 multivitamin Tablet 1 tab PO QAM RF: 0 Discontinued Tylenol Sinus Severe 5-325-200 mg Tablet 1 tab PO Q6H PRN (Reason: Sinus Symptoms) RF: 0 Stand-Alone Forms: TIME PLUS Q, Opioid Pain Management Krames/Other Patient Handouts: Prediabetes, Diabetes Meal Planning Discharge Orders: Discharge Order (Routine); Ordered 07/10/18 Ordered By: Jaime Valle Admission Data Admit Date/Time: 07/04/18 12:18 Attending Provider: Huy Walton Admit Provider: Huy Walton Primary Care Provider: PCP,NO Other Providers: Blue Cheema Service: Surgical Services Other Interventions: Discharge Summary Assessment (RN) Last Done: 07/10/18 13:00 DC Date/Time DO NOT enter until pt leaves facility: 07/10/18 16:02
== END 2018-07-10 16:02 | disposition home health service (06) | DRG 462 ==
LOC: ASU 07:24 → 3E 12:18
DX: Z79.899 Other long term (current) drug therapy; M17.0 Bilateral primary osteoarthritis of knee; I10 Essential (primary) hypertension; I95.1 Orthostatic hypotension; I25.10 Atherosclerotic heart disease of native coronary artery without angina pectoris; R00.2 Palpitations; D62 Acute posthemorrhagic anemia; N40.0 Benign prostatic hyperplasia without lower urinary tract symptoms